=== PATIENT | female | born 1980 | race Caucasian/White ===

== ENCOUNTER 2022-08-10 14:09 | Outpatient (CLI) | payer OTHER, SELFPAY ==
--- NOTE | ~2022-08-10 | US_ITS ---
US breast BI complete INDICATION: Breast cyst. Patient refusal of mammography. TECHNIQUE: Real-time complete bilateral breast ultrasound including all 4 quadrants and subareolar lo cations COMPARISON: No prior studies for comparison. FINDINGS: Right breast: At 1:00, 3 cm from the nipple there is a 6 mm cyst. At 2:00, 2 cm from the nipple, ther e is a 3 mm cyst. At 4:00, 5 cm from the nipple there is an oval parallel orientation mass with focal internal echogenicity causing posterior shadowing. This mass measures 8 x 8 x 5 mm. No significant i nternal vascularity. At 6:00, 4 cm from the nipple there is an oval hypoechoic mass measuring 6 x 6 x 3 mm with echogenic hilum, most likely benign intramammary lymph node. At 8:00, 6 cm from the nipple there is an oval parallel oriented hypoechoic mass without posterior acoustic features or internal v ascularity measuring 3 mm. At 11:00, 7 cm from the nipple, there is a palpable hypoechoic mass with h eterogeneous internal echotexture measuring 11 x 5 x 11 mm. Mixed posterior attenuation and no editorial intern al vascularity. At 11:00, 6 cm from the nipple there is an oval hypoechoic mass measuring 1.6 x 0.5 x 1.6 cm with heterogeneous low-level internal echoes, areas of posterior acoustic enhancement, parall el orientation and no internal vascularity. At 11:00, 5 cm from the nipple there is a 3 mm cyst. At 1 2:00 near the areola there is an 8 mm cyst. There is a second 5 mm cyst at this location. Left breast: At 12:00 in the area of palpable concern there is oval circumscribed parallel oriented hypoechoic mas s measuring 2.1 x 1.8 x 1.1 cm. No significant posterior features or internal vascularity. At 1:00, 2 cm from the nipple there is an oval circumscribed hypoechoic mass measuring 6 mm with parallel orien tation, no posterior features and no internal vascularity. At 2:00, near the areola there is an oval circumscribed hypoechoic mass measuring 1.2 x 0.7 x 1.3 cm without posterior features or internal vas cularity. There is parallel orientation. At 2:00, 5 cm from the nipple there are 2 adjacent cysts, me asuring up to 1.4 cm in aggregate. At 5:00, 6 cm from the nipple there is an oval hypoechoic mass christian suring 8 x 3 mm without posterior features or internal vascularity. Parallel orientation. At 9:00, 4 cm from the nipple there is a slightly irregular shaped hypoechoic mass measuring 5 mm with parallel orientation, no posterior features. At 9:00, 2 cm from the nipple there is a 6 mm cyst. At 10:00, 6 c m from the nipple there is a lobulated hypoechoic mass with parallel orientation, mixed posterior att enuation, no internal vascularity and internal calcifications measuring 13 x 5 x 14 mm. IMPRESSION: 1: Multiple abnormal bilateral breast masses. Recommend correlation with diagnostic bilateral mammogr am with comparison to previous outside mammograms and ultrasounds if clinically available. BI-RADS CATEGORY 0 - INCOMPLETE STUDY, NEED ADDITIONAL IMAGING EVALUATION. Reviewed, dictated and finalized at location A. N LAYER IMPRESSION: 1: Multiple abnormal bilateral breast masses. Recommend correlation with diagno stic bilateral mammogram with comparison to previous outside mammograms and ult rasounds if clinically available. BI-RADS CATEGORY 0 - INCOMPLETE STUDY, NEED ADDITIONAL IMAGING EVALUATION.
== END 2022-08-10 14:10 ==
PROVIDERS: PCP Obstetrics & Gynecology; Visit Provider Obstetrics & Gynecology
DX: N60.02 Solitary cyst of left breast (principal); N60.01 Solitary cyst of right breast
CPT/HCPCS: 76641

== ENCOUNTER 2023-03-11 14:43 | Outpatient (CLI) | payer OTHER, SELFPAY ==
[2023-03-11 19:46] LABS: Alanine Aminotransferase 13 U/L (6-35); Alkaline Phosphatase 54 U/L (38-126); Anion Gap 3 mmol/L (8-16); Aspartate Amino Transferase 23 U/L (14-36); Bilirubin,Total 0.5 mg/dL (0.2-1.3); Blood Urea Nitrogen 11 mg/dL (7-17); Calcium 8.5 mg/dL (8.4-10.2); Carbon Dioxide 28 mmol/L (22-30); Chloride 107 mmol/L (98-107); Cholesterol 234 mg/dL (0-200); Estimated Glomerular Filt Rate > 60; Glucose 97 mg/dL (65-110); HDL Direct 50 mg/dL; Potassium 3.5 mmol/L (3.4-5.0); Sodium 138 mmol/L (137-145); Triglycerides 71 mg/dL (<150)
[2023-03-11 19:57] LABS: LDL Cholesterol Direct 137 mg/dL
[2023-03-11 20:06] LABS: Basophils Absolute Auto 0.1 K/mm3 (0.0-0.1); Basophils Percent Auto 0.8 % (0.2-1.2); Eosinophils Percent Auto 0.1 % (0-4.4); Hematocrit 40.3 % (37.0-47.0); Hemoglobin 13.3 g/dL (12.0-15.0); Immature Granulocyte Absolute 0.02 K/mm3 (0.00-0.031); Immature Granulocyte Percent A 0.3 % (0-0.5); Lymphocytes Absolute Auto 1.63 K/mm3 (0.9-3.2); Lymphocytes Percent Auto 22.3 % (18.3-44.2); Mean Corpuscular Hemoglobin 32.1 pg (26-34); Mean Corpuscular Volume 97.3 fl (80-100); Mean Platelet Volume 11.2 fl (7.4-10.4); Monocytes Absolute Auto 0.5 K/mm3 (0.1-0.6); Monocytes Percent Auto 6.3 % (2.6-8.5); Neutrophils Absolute Auto 5.1 K/mm3 (1.3-6.7); Neutrophils Percent Auto 70.2 % (45.5-73.1); Platelet Count Result 237 k/mm3 (150-375); Red Blood Count 4.14 M/mm3 (4.2-5.4); Red Cell Distribution Width 11.8 % (11.5-14.5); White Blood Count 7.3 K/mm3 (4.5-10.0)
[2023-03-11 20:38] LABS: Thyroid Stimulating Hormone Reflex 0.842 uIU/mL (0.465-4.68)
[2023-03-11 20:51] LABS: Folic Acid 5.9 ng/mL (2.76->20)
== END 2023-03-11 14:44 | disposition home or self-care (01) ==
LOC: ANHGOSHLAB 14:45
PROVIDERS: PCP Family Medicine; Visit Provider Family Medicine
DX: Z13.220 Encounter for screening for lipoid disorders (principal); Z13.228 Encounter for screening for other metabolic disorders; Z13.29 Encounter for screening for other suspected endocrine disorder; E53.8 Deficiency of other specified B group vitamins; R53.83 Other fatigue
CPT/HCPCS: 36415; 80053; 80061; 82607; 82746; 84443; 85025

== ENCOUNTER 2024-03-30 09:26 | Emergency (ER) | payer OTHER, SELFPAY ==
--- NOTE | ~2024-03-30 | CT_ITS ---
EXAMINATION: CT brain wo con DATE: 03/30/2024 10:55 INDICATION: Loss of consciousness. TECHNIQUE: Computed tomography (CT) of the head was performed without intravenous contrast. The mA wa s adjusted according to patient size. Iterative reconstruction technique was employed. The dose-lengt h product was 605.33 mGy-cm. COMPARISON: None FINDINGS: There is no intracranial hemorrhage, acute infarction, or abnormal intracranial mass lesion . The ventricles are normal in size. The paranasal sinuses are clear. The orbits are normal. The mast oid air cells are normal. IMPRESSION: 1. Normal brain. Reviewed, dictated and finalized at location A. IMPRESSION: 1. Normal brain.
[2024-03-30 09:45] VITALS: BP 118/68; PULSE 76; RESP 16; TEMP 36.6; O2SAT 100
--- NOTE | 2024-03-30 10:17 | ED.FALL ---
HPI - Fall General Chief Complaint: Fall Stated Complaint: muscle spasm, head injury Time Seen by Provider: 03/30/24 09:51 History of Present Illness HPI Narrative: This is a 43-year-old otherwise healthy female who presents to the emergency room with chief complaint of closed head injury, fall, cramping sensation in her right leg. Patient states she woke up in her normal state of health and when she went to get out of bed she noticed a charley horse in her right lower extremity in the right calf. It was significantly painful and she tried to step she fell and hit her head on the back of a hard wooden table. She is not sure if she lost consciousness but was able to get up off the ground unassisted. She states she has been feeling groggy, nauseous without vomiting, having some intermittent blurry vision since this happened prior to arrival. Denies any blood thinner use or history of seizure. She was otherwise in her normal state of health. She states she has no history of DVT or PE and the pain in her right calf has since subsided. Denies any chest pain, shortness a breath, vomiting, abdominal pain, back pain, fever, chills, neuropathy, weakness, fatigue. Related Data Home Medications Medication Instructions Recorded Confirmed clonazepam 1 mg tablet 2 mg PO QHS PRN 03/11/23 03/11/23 trazodone 100 mg tablet 200 mg PO QHS PRN 03/11/23 03/11/23 Allergies Allergy/AdvReac Type Severity Reaction Status Date / Time iodine Allergy Unknown Anaphylactic Verified 03/11/23 14:35 Shock latex Allergy Unknown Anaphylactic Verified 03/11/23 14:35 Shock Careless [place] Allergy Severe Dyspnea / Uncoded 03/11/23 13:57 SOB Lobster Allergy Severe Dyspnea / Uncoded 03/11/23 13:57 SOB [place] Allergy Severe Other Uncoded 03/11/23 13:57 Shrimp Allergy Severe Dyspnea / Uncoded 03/11/23 13:57 SOB Review of Systems Review of Systems: As reviewed above in the HPI [facility] Surgical History Surgical History H/O breast augmentation H/O thyroidectomy Family History Family History Mother Diabetes mellitus Social History Social History Smoking status: Never smoker Alcohol intake: never Substance use: never Exam Narrative: GENERAL: [Well-appearing, well-nourished, and in no acute distress.] HEAD: [Normocephalic, atraumatic.] EYES: [PERRLA and EOMI.] ENT: Nares clear, no rhinorrhea or epistaxis. Mucous membranes moist. NECK: Supple. CHEST: [Clear to auscultation. No respiratory distress.] HEART: [Regular rate and rhythm]. No murmur heard. [Normal peripheral pulses.] ABDOMEN: [Soft, nondistended], [nontender], [No rigidity or guarding] EXTREMITIES: Normal range of motion. [No edema.] No calf pain or swelling, full range of motion of the extremities. SKIN: Warm, dry, no rash. No scalp hematoma. NEURO: [No focal deficits]. Alert and oriented [x3.] PSYCH: [Normal mood and affect.] Course Vital Signs Vital signs: Vital Signs Temperature 36.6 C 03/30/24 09:45 Pulse Rate 76 03/30/24 09:45 Respiratory Rate 16 03/30/24 09:45 Blood Pressure 118/68 03/30/24 09:45 Pulse Oximetry 100 03/30/24 09:45 Oxygen Delivery Room Air 03/30/24 09:45 Temperature 36.6 C 03/30/24 11:15 Pulse Rate 70 03/30/24 11:15 Respiratory Rate 16 03/30/24 11:15 Blood Pressure 120/78 03/30/24 11:15 Pulse Oximetry 100 03/30/24 11:15 Oxygen Delivery Room Air 03/30/24 09:45 MDM - Fall MDM Narrative Medical decision making narrative: 43-year-old female presenting for a closed head injury after waking up and feeling like she is having a charley horse in her right leg causing her to fall backwards. Presently she feels nauseous but not having any vomiting. Endorses a headache without any present vision
[2024-03-30 11:15] VITALS: BP 120/78; PULSE 70; RESP 16; TEMP 36.6; O2SAT 100
[2024-03-30 11:18] LABS: BEDSIDEPREGUCG Negative (Negative)
[2024-03-30 11:24] LABS: Basophils Absolute Auto 0.1 K/mm3 (0.0-0.1); Basophils Percent Auto 0.7 % (0.2-1.2); Eosinophils Absolute Auto 0.2 K/mm3 (0-0.3); Eosinophils Percent Auto 2.8 % (0-4.4); Hematocrit 39.3 % (37.0-47.0); Hemoglobin 13.2 g/dL (12.0-15.0); Immature Granulocyte Absolute 0.02 K/mm3 (0.00-0.031); Immature Granulocyte Percent A 0.3 % (0-0.5); Lymphocytes Absolute Auto 1.69 K/mm3 (0.9-3.2); Lymphocytes Percent Auto 23.3 % (18.3-44.2); Mean Corpuscular HGB Conc 33.6 g/dl (32-36); Mean Corpuscular Hemoglobin 32.9 pg (26-34); Monocytes Absolute Auto 0.5 K/mm3 (0.1-0.6); Monocytes Percent Auto 6.5 % (2.6-8.5); Neutrophils Absolute Auto 4.8 K/mm3 (1.3-6.7); Neutrophils Percent Auto 66.4 % (45.5-73.1); Platelet Count Result 238 k/mm3 (150-375); Red Blood Count 4.01 M/mm3 (4.2-5.4); Red Cell Distribution Width 12.1 % (11.5-14.5); White Blood Count 7.3 K/mm3 (4.5-10.0)
[2024-03-30 11:47] LABS: Anion Gap -1 mmol/L (4-12); Blood Urea Nitrogen 13 mg/dL (7-17); Calcium 8.9 mg/dL (8.4-10.2); Carbon Dioxide 31 mmol/L (22-30); Chloride 104 mmol/L (98-107); Estimated Glomerular Filt Rate > 60; Glucose 92 mg/dL (65-110); Sodium 134 mmol/L (137-145)
== END 2024-03-30 12:48 | disposition home or self-care (01) ==
PROVIDERS: Emergency Provider Student in an Organized Health Care Education/Training Program; PCP Family Medicine
DX: S06.0X0A Concussion without loss of consciousness, initial encounter (principal); R55 Syncope and collapse; E89.0 Postprocedural hypothyroidism; W01.190A Fall on same level from slipping, tripping and stumbling with subsequent striking against furniture, initial encounter
CPT/HCPCS: 36415; 70450; 80048; 81025; 83735; 85025; 99284

== ENCOUNTER 2025-05-10 13:56 | Outpatient (CLI) | payer OTHER, SELFPAY ==
--- OUTSIDE RECORDS SUMMARY | 2025-05-10 14:33 | XMS_ITS | Clinical Summary ---
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 baseline this time. Continue trazodone. Trial of sonata Continue to focus on sleep hygiene. Monitor at interval. Assessment & Plan (08/22/2023 9:11 PM TREATMENT SPECIALIST): Chronic, persistent, but functioning at or close to baseline this time. Continue trazodone. Continue to focus on sleep hygiene. Monitor at interval. Assessment & Plan (05/12/2023 7:16 AM CDT): Acute on chronic, persistent. Increase trazodone as discussed. Continue to focus on sleep hygiene. Monitor at interval. Assessment & Plan (11/26/2022 2:29 PM CDT): Assessment & Plan (10/05/2022 2:57 PM CDT): Chronic, better with combination of clonazepam and Trazodone. Assessment & Plan (08/18/2022 12:55 PM TREATMENT SPECIALIST): Acute on chronic, persistent. Trial of Doxepin. Has had sedation in the past with 50 mg, and appears to have had previous benefit with 10 to 20 mg HS. Monitor at interval. Focus on sleep hygiene. Assessment & Plan (06/27/2022 3:15 PM TREATMENT SPECIALIST): Acute, persistent, focus on sleep hygiene as discussed. Medications prescribed. See orders. Monitor at interval. Assessment & Plan (06/08/2022 5:55 PM TREATMENT SPECIALIST): Chronic, persistent. Belsomra ineffective. Paradoxical response. Discontinue Belsomra. Trial of magnesium. Monitor at interval. Assessment & Plan (05/28/2022 5:41 PM TREATMENT SPECIALIST): Chronic, persistent, trial of Belsomra. Continued focus on sleep hygiene. Continue to monitor. Assessment & Plan (03/30/2022 5:36 PM CDT): Acute on chronic, persistent, trial of trazodone. 100 mg HS. Monitor at interval Assessment & Plan (02/07/2022 7:07 PM CDT): Chronic, persistent, treatment options discussed. Trial of Seroquel. Monitor at interval. Assessment & Plan (03/13/2019 4:34 PM CDT): Chronic, stable. No change to treatment. Assessment & Plan (12/27/2018 1:04 PM CDT): Chronic, persistent difficulty with sleep. Does not report any worsening problems at this time focus on sleep structure. Continue to monitor. Assessment & Plan (09/08/2018 7:48 PM TREATMENT SPECIALIST): Chronic condition, currently stable. The patient does not report any worsening sleep-related difficulties at this time. No change to treatment regimen at this time. Supportive, insight-oriented counseling provided in the office today. Assessment & Plan (05/18/2018 4:10 PM TREATMENT SPECIALIST): Chronic issue, currently stable. Did not tolerate higher dose of doxepin. Seems to be doing better on the 10 mg dose of doxepin. Does not wish to change at this time. Does not report any side effects from the medication. Focus on sleep hygiene. Continue to monitor. Assessment & Plan (04/20/2018 10:08 AM CDT): Chronic, persistent sleep difficulties. No change treatment at this time. If the patient does call for any medication in the interim, will give nortriptyline but reduce the dose to 10 mg p.o. q.h.s. p.r.n.. Focus on sleep hygiene. 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 Overview (10/15/2016): Chronic migraine Anxiety 01/02/2014 Overview (10/15/2016): Anxiety Encounters Date Type Department Care Team Description 05/07/2025 11:30 AM CDT Telemedicine [facility] [address] [place] [id number] Misha Gil MD Bipolar and related disorder (HCC) (Primary Dx); Other insomnia; RENETTA (generalized anxiety disorder) 03/05/2025 2:45 PM CDT Telemedicine [facility] [id number] [phone] Misha Gil MD Bipolar and related disorder (HCC) (Primary Dx); Other insomnia; RENETTA (generalized anxiety disorder); Post traumatic stress disorder (PTSD) from Last 3 Months Surgical History Surgery Date Site/Laterality Comments TRANSUMBILICAL AUGMENTATION MAMMAPLASTY 06/11/2017 - 07/11/2017 Medical History Medical History Date Comments Hx Other Medical Headache, migra ine Hx Other Medical anxiety Hx Other Medical allergies Hx Other Medical progesterone Hx Other Medical 9 miscarriages Hx Other Medical lump removed fr om both breats Migraine Family History Medical History Relation Name Comments Heart disease Father Heart disease; Hyperlipidemia Father high choleste rol; Diabetes Mother Diabetes mellit us; Stroke Mother Stroke; Anxiety disorder Other 1 child(15) Anxiety; Allergies Other 2 child(5) Allergies; Headache Other 3 children (15 & 5) Headaches; Relation Name Status Comments Father Mother Other 1 child(15) Other 2 child(5) Other 3 children (15 & 5) Social History Tobacco Use Types Packs/Day Years Used Date Smoking Tobacco: Never Smokeless Tobacco: Never Alcohol Use Standard Drinks/Week Comments No 0 (1 standard drink = 0.6 oz pur e alcohol) Comments Unknown Sex and Gender Information Value Date Recorded Sex Assigned at Not on file Legal Sex Female 4:25 AM TREATMENT SPECIALIST Gender Identity Not on file Sexual Orientation Not on file Obstetrics History Last Filed Vital Signs Vital Sign Reading Time Taken Comments Blood Pressure 120/64 04/17/2020 10:28 AM CDT Pulse 88 04/17/2020 10:28 AM CDT Temperature - - Respiratory Rate 16 04/17/2020 10:28 AM CDT Oxygen Saturation - - Inhaled Oxygen Concentration - - Weight 61.2 kg (135 lb) 04/17/2020 10:28 AM CDT Height 167.6 cm (5' 6) 04/17/2020 10:28 AM CDT Body Mass Index 21.79 04/17/2020 10:28 AM CDT Plan of Treatment Health Maintenance Due Date Last Done Comments Breast Cancer Screening-Mammogram 1980 Cervical Cancer Screening 1980 Depression Screening 1980 Hepatitis C Screening 1980 DTaP/Tdap/Td Vaccine (1 - Tdap) 09/14/1991 Varicella Vaccines (1 of 2 - 13+ 2-dose series) 1993 Hepatitis B Screening 1998 Regular Well Visit/Exam 18-64 1998 HPV Vaccines (1 - 3-dose SCD M series) 09/14/2007 Influenza Vaccine (#1) 2025 Pneumococcal vaccine <65 Aged Out No longer eligible based on patient's age to complete this topic Insurance [facility] Care Teams [employer] P[employer] Relationship Specialty Start Date End Date Joe Jaquez MD [id number] [place] [address] PCP - General Emergency Medicine 03/21/18
[2025-05-10 19:08] LABS: Hematocrit 46.5 % (37.0-47.0); Hemoglobin 15.2 g/dL (12.0-15.0); Immature Platelet Fraction Pct 7.8 % (0.9-11.2); Mean Corpuscular HGB Conc 32.7 g/dl (32-36); Mean Corpuscular Hemoglobin 32.0 pg (26-34); Mean Corpuscular Volume 97.9 fl (80-100); Platelet Count Result 169 k/mm3 (150-375); Red Blood Count 4.75 M/mm3 (4.2-5.4); White Blood Count 9.9 K/mm3 (4.5-10.0)
[2025-05-10 19:42] LABS: Band Neutrophils Percent 1 % (0-6); Basophils Absolute Manual 0.09 K/mm3 (0.0-0.1); Basophils Percent Manual 1 % (0-1); Lymphocytes Absolute Manual 1.58 K/mm3 (1.1-4.5); Lymphocytes Percent Manual 16.0 % (18-44); Monocytes Absolute Manual 0.09 K/mm3 (0.1-0.90); Monocytes Percent Manual 1 % (3-9); Neutrophils Absolute Manual 8.11 K/mm3 (1.3-6.7); Neutrophils Percent Manual 81 % (46-73); Total Cells Counted 100
[2025-05-10 19:43] LABS: Schistocytes None Seen
[2025-05-10 20:01] LABS: Alanine Aminotransferase 13 U/L (6-35); Albumin Level 4.0 g/dL (3.5-5.1); Alkaline Phosphatase 60 U/L (38-126); Anion Gap 4 mmol/L (4-12); Aspartate Amino Transferase 22 U/L (14-36); Bilirubin,Total 0.5 mg/dL (0.2-1.3); Blood Urea Nitrogen 14 mg/dL (7-17); Calcium 8.9 mg/dL (8.4-10.2); Carbon Dioxide 24 mmol/L (22-30); Chloride 108 mmol/L (98-107); Cholesterol 221 mg/dL (0-200); Estimated Glomerular Filt Rate > 60; Glucose 98 mg/dL (65-110); HDL Direct 60 mg/dL; Potassium 4.7 mmol/L (3.4-5.0); Sodium 136 mmol/L (137-145); Total Protein 6.7 g/dL (6.3-8.2); Triglycerides 67 mg/dL (<150)
[2025-05-10 20:23] LABS: Thyroid Stimulating Hormone 0.591 uIU/mL (0.465-4.680)
[2025-05-10 20:52] LABS: Vitamin B12 867.0 pg/mL (239-931)
== END 2025-05-10 13:57 | disposition home or self-care (01) ==
LOC: ANHGOSHLAB 13:56
PROVIDERS: PCP Clinical Nurse Specialist; Visit Provider Clinical Nurse Specialist
DX: E55.9 Vitamin D deficiency, unspecified (principal); E04.9 Nontoxic goiter, unspecified; F41.9 Anxiety disorder, unspecified; R53.83 Other fatigue; Z13.220 Encounter for screening for lipoid disorders; Z13.29 Encounter for screening for other suspected endocrine disorder
CPT/HCPCS: 36415; 80053; 80061; 82306; 82607; 84443; 85025; 85055